=== PATIENT | female | born 1995 | race Caucasian/White ===

== ENCOUNTER 2022-10-26 17:38 | Inpatient (IN) | payer MEDICAID, OTHER ==
[~2022-10-26] VITALS: Ht 157.5 cm; Wt 87.1 kg
[2022-10-26] MEDS ORDERED: BUTORPHANOL TARTRATE 2 MG/ML VIAL IV PRN (18:00)
[2022-10-26] MEDS ORDERED: NALOXONE HCL 0.4 MG/ML 1ML VIAL IM PRN (18:00)
[2022-10-26] MEDS ORDERED: LIDOCAINE HCL 1% 10 MG/ML 10ML VIAL IJ SCH (18:00)
[2022-10-26] MEDS ORDERED: MISOPROSTOL 100MCG TABLET VG SCH (18:00)
[2022-10-26] MEDS ORDERED: CARBOPROST TROMETHAMINE 250 MCG/ML AMPUL IM PRN (18:00)
[2022-10-26] MEDS: LACTATED RINGERS 1,000 ML IV SCH ×2 (18:15→22:35)
[2022-10-26 19:19] LABS: CLARITY URINE TURBID (CLEAR); COLOR URINE YELLOW (YELLOW); KETONES URINE NEGATIVE (NEGATIVE); LEUKOCYTE ESTERASE URINE 1+ (NEGATIVE); NITRITE URINE NEGATIVE (NEGATIVE); OCCULT BLOOD URINE 3+ (NEGATIVE); PROTEIN URINE 2+ (NEGATIVE); SPECIFIC GRAVITY URINE 1.007 (1.005-1.030); UROBILINOGEN URINE 0.2 E.U./dL (0.2-1.0)
[2022-10-26 19:41] LABS: BASOPHILS % 0.6 % (0.0-2.0); EOSINOPHILS % 5.7 % (0.0-5.0); HEMATOCRIT. 34.1 % (36.0-48.0); HEMOGLOBIN. 11.5 g/dL (12.0-16.0); LYMPHOCYTES % 22.7 % (20.0-50.0); MEAN CORPUSCULAR HEMOGLOBIN 29.5 pg (28.0-32.0); MEAN CORPUSCULAR VOLUME 87.4 fL (81.0-99.0); MEAN PLATELET VOLUME 8.9 fl (7.4-10.4); MONOCYTES % 7.1 % (2.0-8.0); NEUTROPHILS % 63.9 % (40.0-76.0); PLATELET 209 x1000/uL (130-400); RED BLOOD CELL COUNT 3.91 mill/uL (4.2-5.4); RED CELL DISTRIBUTION WIDTH 13.8 % (11.6-14.6)
[2022-10-26 19:42] LABS: *AMPHETAMINES SCREEN URINE NEGATIVE (NEGATIVE); *BARBITURATES SCREEN URINE NEGATIVE (NEGATIVE); *BENZODIAZEPINES SCREEN URINE NEGATIVE (NEGATIVE); *COCAINE SCREEN URINE NEGATIVE (NEGATIVE); CANNABINOID URINE SCREEN NEGATIVE (NEGATIVE); METHADONE URINE SCREEN NEGATIVE (NEGATIVE); OPIATES URINE SCREEN NEGATIVE (NEGATIVE); PHENCYCLIDINE URINE SCREEN NEGATIVE (NEGATIVE)
[2022-10-26 19:50] LABS: CHLORIDE 107 mEq/L (98-107)
[2022-10-26 20:00] LABS: D-DIMER 1.69 mg/L FEU (<0.50); INR 0.9; PARTIAL THROMBOPLASTIN TIME 27.1 sec (23.4-31.0); PROTHROMBIN TIME 10.2 sec (9.6-11.0)
[2022-10-26 20:16] LABS: HEPATITIS B SURFACE ANTIGEN NEGATIVE
[2022-10-27] MEDS: LACTATED RINGERS 1,000 ML IV SCH ×3 (06:50→15:21)
[2022-10-27] MEDS ORDERED: AMPICILLIN 2GM in NS 100ML 100 ML IV SCH (14:45)
[2022-10-27] MEDS ORDERED: ROPIVACAINE HCL/PF EPIDURAL 200 ML EPI ONE (15:42)
[2022-10-27] MEDS: OXYTOCIN 30 UNITS/500ML NS PMX 500 ML IV SCH (16:33)
[2022-10-27] MEDS ORDERED: ACETAMINOPHEN WITH CODEINE 300/30MG TABLET PO PRN (20:45)
[2022-10-27] MEDS ORDERED: DIPHENHYDRAMINE 25MG CAPSULE PO PRN (20:45)
[2022-10-27] MEDS ORDERED: BENZOCAINE/LANOLIN/ALOE VERA SPRAY TOP PRN (20:45)
[2022-10-27] MEDS ORDERED: HEMORRHOIDAL SUPP PR PRN (20:45)
[2022-10-27] MEDS ORDERED: BISACODYL 10MG SUPP PR PRN (20:45)
[2022-10-27] MEDS ORDERED: GLYCERIN/WITCH HAZEL LEAF MEDICATED PAD TOP PRN (20:45)
[2022-10-27] MEDS ORDERED: LANOLIN OINT 7GM TUBE TOP PRN (20:45)
[2022-10-27] MEDS ORDERED: IBUPROFEN 400MG TABLET PO PRN (20:45)
[2022-10-27] MEDS ORDERED: RHO(D) IMMUNE GLOBULIN 300 MCG/SYR IM PRN (20:45)
[2022-10-27] MEDS ORDERED: OXYTOCIN 30 UNITS/500ML NS PMX 500 ML IV SCH (20:45)
[2022-10-27] MEDS ORDERED: AMPICILLIN 1,000 MG in SODIUM CHLORIDE 0.9% 50 ML IV SCH (21:00)
[2022-10-27 21:10] VITALS: BP 119/77
[2022-10-27 21:40] VITALS: BP 121/77
[2022-10-27] MEDS: SIMETHICONE 80MG TABLET CHEW PO SCH (21:47)
[2022-10-27] MEDS: DOCUSATE SODIUM 100MG CAPSULE PO SCH (21:47)
[2022-10-27] MEDS: IBUPROFEN 800MG TABLET PO PRN (21:47)
[2022-10-27 22:10] VITALS: BP 124/75
[2022-10-28] MEDS: OXYTOCIN 30 UNITS/500ML NS PMX 500 ML IV SCH (00:25)
[2022-10-28 04:30] VITALS: BP 127/77
[2022-10-28 07:30] VITALS: BP 118/78
[2022-10-28 07:38] LABS: BASOPHILS % 0.3 % (0.0-2.0); EOSINOPHILS % 0.9 % (0.0-5.0); HEMATOCRIT. 28.8 % (36.0-48.0); HEMOGLOBIN. 9.9 g/dL (12.0-16.0); LYMPHOCYTES % 17.8 % (20.0-50.0); MEAN CORPUSCULAR HEMOGLOBIN 30.2 pg (28.0-32.0); MEAN CORPUSCULAR VOLUME 87.9 fL (81.0-99.0); MEAN PLATELET VOLUME 9.2 fl (7.4-10.4); MONOCYTES % 8.5 % (2.0-8.0); NEUTROPHILS % 72.5 % (40.0-76.0); PLATELET 169 x1000/uL (130-400); RED BLOOD CELL COUNT 3.28 mill/uL (4.2-5.4)
[2022-10-28] MEDS: SIMETHICONE 80MG TABLET CHEW PO SCH ×3 (08:00→17:09)
[2022-10-28] MEDS: PRENATAL VIT/FE FUMARATE/FA TABLET PO SCH (09:49)
[2022-10-28] MEDS: FERROUS SULFATE 325MG TABLET PO SCH ×3 (09:49→17:08)
[2022-10-28] MEDS ORDERED: INFLUENZA VACCINE 05/PF 0.5 ML SYRINGE IM ONE (11:00)
[2022-10-28 15:22] VITALS: BP 119/83
[2022-10-28] MEDS: IBUPROFEN 800MG TABLET PO PRN (17:08)
[2022-10-28 20:00] VITALS: BP 119/65
[2022-10-29] MEDS: DOCUSATE SODIUM 100MG CAPSULE PO SCH (00:43)
[2022-10-29] MEDS: SIMETHICONE 80MG TABLET CHEW PO SCH ×2 (00:43→08:45)
[2022-10-29] MEDS: IBUPROFEN 800MG TABLET PO PRN (00:44)
[2022-10-29 04:00] VITALS: BP 127/80
[2022-10-29 07:20] VITALS: BP 131/81
[2022-10-29] MEDS: PRENATAL VIT/FE FUMARATE/FA TABLET PO SCH (08:45)
[2022-10-29] MEDS: FERROUS SULFATE 325MG TABLET PO SCH (08:45)
== END 2022-10-29 11:00 | disposition home or self-care (01) | DRG 560 ==
LOC: OBSVTOIN 17:38 → 8 EST LDRP 17:38 → 8EST 10-27 21:00
PROVIDERS: ADMIT Obstetrics & Gynecology; ATTEND Obstetrics & Gynecology
PROC: 10E0XZZ Delivery of Products of Conception, External Approach (ICD-10-PCS; principal; 2022-10-27)
PROC: 3E0R3BZ Introduction of Anesthetic Agent into Spinal Canal, Percutaneous Approach (ICD-10-PCS; 2022-10-27)
PROC: 00HU33Z Insertion of Infusion Device into Spinal Canal, Percutaneous Approach (ICD-10-PCS; 2022-10-27)
DX: O48.0 Post-term pregnancy (principal); Z37.0 Single live birth; O69.81X0 Labor and delivery complicated by cord around neck, without compression, not applicable or unspecified; Z20.822 Contact with and (suspected) exposure to COVID-19; Z3A.40 40 weeks gestation of pregnancy
CPT/HCPCS: 36415; 76805; 76815; 80053; 80305; 81003; 84550; 85025; 85379; 85384; 86592; 86762; 86850; 86900; 87340; 87426; 90686; 99281; G0378; J0290; J0595; J2795; J7120; J2590